=== PATIENT | male | born 1955 | race Caucasian/White ===

== ENCOUNTER 2021-08-15 20:24 | Observation (INO) | payer MEDICARE, SELFPAY ==
--- NOTE | ~2021-08-15 | CT_ITS ---
EXAMINATION: CT abdomen pelvis w con DATE: 08/15/2021 22:16 INDICATION: Left lower quadrant pain TECHNIQUE: Computed tomography (CT) of the abdomen and pelvis was performed with 100 cc Omnipaque 350 intravenous contrast. The dose-length product was 443.96 mGy-cm. Automated exposure control and iter ative reconstruction technique were employed. COMPARISON: No prior studies for comparison. FINDINGS: There are small pulmonary nodules in the lung bases, some of which are calcified. There is a pleural-based right middle lobe nodule measuring 6 mm, likely benign. No significant pleural or pe ricardial effusion. The liver, spleen, pancreas, adrenal glands and kidneys are unremarkable. Gallbladder is present. Non obstructive bowel gas pattern. There is a right inguinal hernia containing nonobstructed small bowel. Trace free fluid in the hernia sac. There is mild bladder wall thickening anteriorly. Consider cysti tis in the appropriate clinical setting. No acute osseous abnormality. IMPRESSION: 1. Right inguinal hernia containing nonobstructed small bowel. 2: Mild bladder wall thickening, suspicious for cystitis. 3: Small bilateral pulmonary nodules, largest in the right middle lobe measuring 6 mm, likely benign. Follow-up low dose CT chest in 6 months recommended. Reviewed, dictated and finalized at location A. [facility] IMPRESSION: 1. Right inguinal hernia containing nonobstructed small bowel. 2: Mild bladder wall thickening, suspicious for cystitis. 3: Small bilateral pulmonary nodules, largest in the right middle lobe measurin g 6 mm, likely benign. Follow-up low dose CT chest in 6 months recommended.
[2021-08-15 20:26] VITALS: BP 193/75; PULSE 83; RESP 19; TEMP 36.6; O2SAT 100
--- NOTE | 2021-08-15 21:02 | ED.ABDPAIN ---
HPI - Abdominal Pain General Chief Complaint: Abdominal Pain Stated Complaint: abd pain Time Seen by Provider: 08/15/21 20:38 Source: patient and family History of Present Illness HPI narrative: 66-year-old male presented the restaurant for evaluation of nausea and vomiting with left lower abdominal pain since Tuesday. Patient states prior to arrival he was going to urinate and he felt a pop in his right groin followed by a bulge at his right groin. On examination patient did have a right-sided inguinal hernia that was able to be reduced. Patient did feel improved with reduction. This was initially about the size of a golf ball. Patient did stand at bedside and had a recurrence of the hernia but was able to spontaneously reduce it when laying back down. Related Data Allergies Allergy/AdvReac Type Severity Reaction Status Date / Time lisinopril AdvReac Mild elevated Verified 08/16/21 00:04 potassium PMFSH Family History Family History (Updated 08/16/21 @ 00:30 by Zion Ngo RN) Mother Family history of malignant neoplasm of thyroid Father Dementia Cerebrovascular accident Sibling Hypothyroid Hypertension Sibling Hypertension Heart attack Sibling Alcoholism Social History Social History Smoking status: Never smoker Second hand tobacco smoke exposure: No Alcohol intake: never Alcohol use details: rare Substance use: never Substance use type: does not use Gender identity (if verbalized by the patient): Male Spiritual care concerns: No Exam Narrative: APPEARANCE: Well appearing, no pain, no distress, well-nourished. HEAD: normocephalic, atraumatic. NECK: Supple. No adenopathy, no masses. RESPIRATORY: Airway patent, respirations nonlabored. Clear to auscultation bilaterally, no rales, rhonchi, wheezing. CARDIOVASCULAR: Regular rate and rhythm without murmurs rubs or gallops. ABDOMINAL: Left lower quadrant pain. Patient did have a right inguinal hernia that was able to be reduced. MUSCULOSKELETAL: Moves all extremities. Strength/ROM intact, No edema, No calf tenderness. SKIN: Warm, dry. Normal Color Course Course Emergency Course: Coming back from CT patient did have a significant worsening of his right inguinal hernia with the deformity being approximately 8 cm. Patient states that he had been feeling fine but stood up from the bed to transfer to the CT gurney when he had a recurrence of the right inguinal hernia. Hernia was visualized on the CT scan. Upon returning to the room the patient initially did not tolerate reduction of the hernia. Patient was provided additional medications for pain control and ice pack was placed. Case was discussed with Dr. Kiser on-call for surgery and patient will be admitted. I did return to reevaluate the patient and was able to reduce the hernia successfully. Patient and were updated on the plan for bedrest and admission for surgical evaluation. Vital Signs Vital signs: Vital Signs Temperature 97.9 F 08/15/21 20:26 Pulse Rate 83 08/15/21 20:26 Respiratory Rate 19 08/15/21 20: Blood Pressure 193/75 H 08/15/21 20:26 Pulse Oximetry 100 08/15/21 20: Temperature 97.7 F 08/16/21 00:01 Pulse Rate 66 08/16/21 00:01 Respiratory Rate 18 08/16/21 00:01 Blood Pressure 128/58 L 08/16/21 00:01 Pulse Oximetry 97 08/16/21 00:01 MDM - Abdominal Pain Lab Data Attestation: I reviewed the patient's lab results. Result diagrams: 08/15/21 21:30 08/15/21 21:30 Labs: Lab Results 08/15/21 08/15/21 08/15/21 Range/Units 21:30 21:30 21:30 WBC 11.3 H (4.5-10.0) K/mm3 RBC 5.09 (4.6-6.20) M/mm3 Hgb 15.5 (14.0-18.0) g/dL Hct 46.5 (42.0-52.0) % MCV 91.4 (80-100) fl MCH 30.5 (26-34) pg MCHC 33.3 (32-36) g/dl RDW 12.0 (11.5-14.5) % Plt Count 257 (150-375) k/mm3 MPV 10.2 (7.4-10.4)
[2021-08-15 21:35] LABS: Basophils Absolute Auto 0.1 K/mm3 (0.0-0.1); Basophils Percent Auto 0.8 % (0.2-1.2); Eosinophils Absolute Auto 0.1 K/mm3 (0-0.3); Eosinophils Percent Auto 1.1 % (0-4.4); Hematocrit 46.5 % (42.0-52.0); Hemoglobin 15.5 g/dL (14.0-18.0); Immature Granulocyte Absolute 0.04 K/mm3 (0.00-0.031); Immature Granulocyte Percent A 0.4 % (0-0.5); Lymphocytes Absolute Auto 1.51 K/mm3 (0.9-3.2); Lymphocytes Percent Auto 13.4 % (18.3-44.2); Mean Corpuscular HGB Conc 33.3 g/dl (32-36); Mean Corpuscular Hemoglobin 30.5 pg (26-34); Mean Corpuscular Volume 91.4 fl (80-100); Mean Platelet Volume 10.2 fl (7.4-10.4); Monocytes Absolute Auto 1.1 K/mm3 (0.1-0.6); Monocytes Percent Auto 10.1 % (2.6-8.5); Neutrophils Absolute Auto 8.4 K/mm3 (1.3-6.7); Neutrophils Percent Auto 74.2 % (45.5-73.1); Platelet Count Result 257 k/mm3 (150-375); Red Blood Count 5.09 M/mm3 (4.6-6.20); White Blood Count 11.3 K/mm3 (4.5-10.0)
[2021-08-15 21:48] LABS: Alanine Aminotransferase 29 U/L (4-50); Albumin Level 4.8 g/dL (3.5-5.1); Alkaline Phosphatase 65 U/L (38-126); Anion Gap 7 mmol/L (8-16); Aspartate Amino Transferase 29 U/L (17-59); Bilirubin,Total 0.6 mg/dL (0.2-1.3); Blood Urea Nitrogen 15 mg/dL (9-20); Calcium 9.6 mg/dL (8.4-10.2); Carbon Dioxide 28 mmol/L (22-30); Chloride 101 mmol/L (98-107); Estimated CRCL calculation 77 ml/min; Estimated Glomerular Filt Rate > 60; Glucose 159 mg/dL (65-110); Potassium 3.7 mmol/L (3.4-5.0); Sodium 136 mmol/L (137-145)
[2021-08-15] MEDS: HYDROmorphone HCL INJ (*CRX) 1 MG/ML SYR IV PUSH (22:31)
[2021-08-15] MEDS: ONDANSETRON INJ 4 MG/2 ML VIAL IV PUSH (22:31)
[2021-08-15] MEDS: SODIUM CHLORIDE 0.9% IV 1,000 ML 999 ML IV CONT (22:41)
[2021-08-15 22:42] VITALS: BP 185/91; PULSE 63; RESP 18; O2SAT 99
--- NOTE | 2021-08-15 23:08 | PC.NURSE ---
Assuming care of pt.
[2021-08-15 23:36] LABS: SARS-CoV-2 RNA PCR Negative
[2021-08-16] VITALS: BMI 27.1
--- NOTE | 2021-08-16 | ADMGEN ---
This patient, Fly Kiser JrYas, was admitted to Medical Room 243-01. Patient/family oriented to hospital policies and general routines including ID bracelet, bed and alarms, visiting hours, pain management, procedures, bathroom and other care routines, personal items, smoking policy, room service/diet, and visiting hours. Information on how to activate the Rapid Response Team has been discussed. Patient/Family are encouraged to report perceived risks to care and to ask questions if they do not understand what they are told or what they should do.
[2021-08-16 00:01] VITALS: BP 128/58; PULSE 66; RESP 18; TEMP 36.5; O2SAT 97
[2021-08-16] MEDS: SODIUM CHLORIDE 0.9% IV 1,000 ML 125 ML IV CONT ×3 (00:03→16:13)
[2021-08-16 02:10] LABS: Add Urine Microscopic? NO; Appearance Urine Clear (Clear); Bilirubin Urine Negative (Negative); Blood Urine Negative (Negative); Color Urine Yellow (Yellow); Glucose Urine UA Negative (Negative); Ketones Urine Negative (Negative); Leukocyte Esterase Ur Negative LEU/UL (Negative); Mucus Urine Rare /lpf; Nitrate Urine Negative (Negative); Protein Urine Negative (Negative); RBC Urine 0-2 /hpf (0-2); Urobilinogen Urine Negative mg/dL (<2.0); WBC Urine 0-3 /hpf
[2021-08-16 03:28] VITALS: BP 114/65; PULSE 57; RESP 16; TEMP 36.4; O2SAT 99
[2021-08-16 05:49] LABS: Basophils Absolute Auto 0.1 K/mm3 (0.0-0.1); Basophils Percent Auto 0.6 % (0.2-1.2); Eosinophils Absolute Auto 0.1 K/mm3 (0-0.3); Eosinophils Percent Auto 0.5 % (0-4.4); Hematocrit 43.1 % (42.0-52.0); Immature Granulocyte Absolute 0.06 K/mm3 (0.00-0.031); Immature Granulocyte Percent A 0.5 % (0-0.5); Lymphocytes Absolute Auto 1.65 K/mm3 (0.9-3.2); Lymphocytes Percent Auto 12.8 % (18.3-44.2); Mean Corpuscular HGB Conc 32.5 g/dl (32-36); Mean Corpuscular Hemoglobin 30.7 pg (26-34); Mean Corpuscular Volume 94.5 fl (80-100); Monocytes Percent Auto 7.9 % (2.6-8.5); Neutrophils Percent Auto 77.7 % (45.5-73.1); Platelet Count Result 234 k/mm3 (150-375); Red Blood Count 4.56 M/mm3 (4.6-6.20); White Blood Count 12.9 K/mm3 (4.5-10.0)
[2021-08-16 08:00] VITALS: O2SAT 96
--- NOTE | 2021-08-16 09:24 | PM.IMHP ---
H&P: HPI History of Present Illness Date/Time: 08/16/21 09:24 This is a 66-year-old male presented the restaurant for evaluation of nausea and vomiting with left lower abdominal pain since Tuesday. Patient states prior to arrival he was going to urinate and he felt a pop in his right groin followed by a bulge at his right groin. On examination patient did have a right-sided inguinal hernia that was able to be reduced. Patient did feel improved with reduction. This was initially about the size of a golf ball. Patient did stand at bedside and had a recurrence of the hernia but was not able to spontaneously reduce it when laying back down. So after dthe CT in the ED Dr. Arnold was again able to reduce it but not wihthout significant pain by the patient. Patient has been fairly complex from trouble when stain in bed and not straining over the interim. Chief Complaint: Painful bulge in the right groin Review of Systems Review of Systems: All systems reviewed & are unremarkable except as noted in HPI and below (HPI) Constitutional: Constitutional: Reports as per HPI, Denies chills and Denies fever(s) Eyes: Eyes: Reports no additional eye complaints ENT: Reports Normal hearing present and Denies dizziness Cardiovascular: Cardiovascular: Reports no additional cardiovascular complaints, Denies chest pain and Denies irregular heart rhythm Comments: History of hypertension controlled on medications History of hypercholesterolemia medication Respiratory: Respiratory: Reports no additional respiratory complaints Gastrointestinal: Gastrointestinal: Reports no additional gastrointestinal complaints, Denies abdominal pain, Denies bloating and Reports GI cramping ( occasionally, in left lower quadrant) Comments: The patient has completed two Cologuard tests 3 years apart with the most recent being last year. These but only both were negative. He has never had a colonoscopy. Genitourinary: Genitourinary: Denies hematuria, Denies urinary frequency and Denies urinary hesitancy Musculoskeletal: Musculoskeletal: Denies back pain Integumentary/Breasts: Skin/Breast: Reports system reviewed and no additional complaints, except as docu Neurologic: Reports Normal hearing present, Denies Abnormal speech present, Denies confusion and Denies dizziness Psychiatric: Psychiatric: Reports no additional psychiatric complaints and Denies confusion Endocrine: Endocrine: Reports no additional endocrine complaints Comments: History of hypothyroid or thyroidism on medication. He believes his last test for his thyroid levels were approximately 3 months ago. Hematologic/Lymphatic: Hematologic/Lymphatic: Denies easy bleeding and Denies easy bruising Allergic/Immunologic: Allergic/Immunologic: Reports no additional allergic/immunologic complaints PMFSH Family History Family History (Updated 08/16/21 @ 00:30 by Zion Ngo RN) Mother Family history of malignant neoplasm of thyroid Father Dementia Cerebrovascular accident Sibling Hypothyroid Hypertension Sibling Hypertension Heart attack Sibling Alcoholism Social History Social History Smoking status: Never smoker Second hand tobacco smoke exposure: No Alcohol intake: never Alcohol use details: rare Substance use: never Substance use type: does not use Gender identity (if verbalized by the patient): Male Spiritual care concerns: No Meds Home Medications and Allergies Home Medications Medication Instructions Recorded Confirmed Type levothyroxine 100 mcg tablet 100 mcg PO DAILY #30 tablet 02/25/21 08/16/21 Rx amlodipine 2.5 mg tablet 2.5 mg PO DAILY #30 tablet 04/20/21 08/16/21 Rx atorvastatin 20 mg tablet 20 mg PO QHS #90 tablet 05/29/21 08/16/21 Rx hydrochlorothiazide 25 mg tablet 25 mg PO DAILY #30 tablet 06/12/21 08/16/21 Rx Allergies Allergy/AdvReac Type Severity Reaction Status Date / Time
[2021-08-16 14:00] VITALS: BP 130/64; PULSE 66; RESP 18; TEMP 36.8; O2SAT 98
[2021-08-16 20:57] VITALS: BP 143/70; PULSE 61; RESP 18; TEMP 36.9; O2SAT 98
[2021-08-16] MEDS: LEVOTHYROXINE SODIUM 100 MCG TABLET PO (21:34)
[2021-08-17] VITALS (13 sets, daily range): BP systolic 120–164; BP diastolic 63–74; PULSE 60–92; RESP 14–22; TEMP 35.6–36.4; O2SAT 96–100
[2021-08-17] MEDS: SODIUM CHLORIDE 0.9% IV 1,000 ML 100 ML IV CONT ×2 (01:22→12:12)
[2021-08-17] MEDS: CHLORHEXIDINE GLUCONATE 4% SOL 120 ML BTL 1 APPLIC TOPICAL (04:04)
[2021-08-17] MEDS: amLODIPine BESYLATE 2.5 MG TABLET PO (09:00)
--- NOTE | 2021-08-17 11:38 | PCCCNOTE ---
On 08/17/21, the student, [Darlene Hoffman ], provided care and [facility]. I have reviewed the student's documentation and agree with the findings.
[2021-08-17] MEDS: KETOROLAC 15 MG/ML VIAL (*BKC) IV PUSH (13:31)
[2021-08-17] MEDS: LACTATED RINGERS 1,000 ML 30 ML IV CONT (13:31)
[2021-08-17] MEDS: ACETAMINOPHEN 500 MG TABLET 1000 MG PO (13:31)
--- NOTE | 2021-08-17 13:31 | WPDANESEPPF ---
Anes - Initial Pre Proc Eval Procedure: Operation Date: 08/17/21 15:00 Proposed Procedures p open Right Inguinal Hernia Repair With Mesh - Jacinto Kiser MD Date/Time: 08/17/21 13:31 Surgeon: Jacinto Kiser MD Pre Op Diagnosis: Right Inguinal Hernia Patient Data Age: 66 Gender: M Height: 1.75 m Weight: 83.3 kg Last Vital Signs Temp 36.4 C 08/17/21 04:56 Pulse 62 08/17/21 04:56 Resp 16 08/17/21 04:56 BP 148/66 H 08/17/21 04:56 Pulse Ox 96 08/17/21 10:27 Allergies Allergy/AdvReac Type Severity Reaction Status Date / Time lisinopril AdvReac Mild elevated Verified 08/17/21 13:23 potassium Home Medications Medication Instructions Recorded Confirmed Type levothyroxine 100 mcg tablet 100 mcg PO DAILY #30 tablet 02/25/21 08/16/21 Rx amlodipine 2.5 mg tablet 2.5 mg PO DAILY #30 tablet 04/20/21 08/16/21 Rx atorvastatin 20 mg tablet 20 mg PO QHS #90 tablet 05/29/21 08/16/21 Rx hydrochlorothiazide 25 mg tablet 25 mg PO DAILY #30 tablet 06/12/21 08/16/21 Rx Patient hx anesthesia problems: none Family hx anesthesia problems: none Results Review: All pre-operative results and documents have been reviewed as part of the pre-operative evaluation. [facility] Family History Family History Mother Family history of malignant neoplasm of thyroid Father Dementia Cerebrovascular accident Sibling Hypothyroid Hypertension Sibling Hypertension Heart attack Sibling Alcoholism Social History Social History Smoking status: Never smoker Second hand tobacco smoke exposure: No Alcohol intake: never Alcohol use details: rare Substance use: never Substance use type: does not use Gender identity (if verbalized by the patient): Male Spiritual care concerns: No Anes - Eval Final PreProcedure Day of Procedure 08/17/21 13:31 Patient weight: overweight Heart: regular rate and rhythm Lungs: clear to auscultation Airway: Mallampati scale class II and special considerations poor opening Neurological: alert and oriented Last oral intake: >/= 8 hours ASA classification: III Emergent: no Anesthetic plan: proceed Anesthesia type and monitoring: general ETT and standard monitoring Results Review: All pre-operative results and documents have been reviewed as part of the pre-operative evaluation. Informed Consent: The patient's anesthetic plan and its attendant risks and benefits were discussed with the patient/family/POA. Questions were solicited and answers provided to the satisfaction of the patient/family/POA.
[2021-08-17] MEDS: ceFAZolin 2 GM/D5W 50 ML 2 GM/50 ML BAG IVPB (13:50)
[2021-08-17] MEDS: BUPIVACAINE/EPINEPHRINE 0.5% 30 ML VIAL INFILTRATE (14:28)
--- NOTE | 2021-08-17 16:31 | W.PM.PROC2 ---
Procedure Note - Detailed Date of Procedure 08/17/21 Pre-op Diagnosis Right Inguinal Hernia (recently incarcerated) Post-op Diagnosis same Procedure Performed Open inguinal hernia repair with mesh Surgeon Jacinto Kiser MD Environmental Construction Engineer Jaycee [place], [place] [facility] assist Anesthesia general and local (0.5% Marcaine with 1% xylocaine plain mixed) Indications Patient presented the ER yesterday with an incarcerated right inguinal hernia. CT scan showed that he had contained what appeared to be unobstructed bowel. The ER physician was able to reduce it. However it came right back out when the patient stood up. Therefore he was kept flat and after some ice in Trendelenburg position I was able to be reduced again. We kept the patient bed rest and I talked to him about the risks benefits possible complications of a open inguinal hernia repair. I explained the use of mesh and its possible complications. Because he was having significant pain with the incarceration he wanted to proceed as soon as possible with repair. Findings Patient had a very large indirect inguinal hernia sac. At the time of surgery did not contain any intra-abdominal contents. Description of Procedure The patient was placed in the supine position on the operating room table. After induction of adequate general endotracheal by [facility] Anesthesia staff, we carefully prepped the entire abdomen and scrotum with chlorhexidine. One sterile towel was placed underneath the scrotum. Four towels were placed around the right lower quadrant. Following this, a time-out was performed with the surgical team and the patient's surgical procedure and site was confirmed. We then carefully outlined a curvilinear incision in the right groin area and a curvilinear incision was made after introducing a mixture of local anesthetic, using 0.5% Marcaine with epinephrine and 1% Xylocaine plain as both an ilioinguinal nerve block and at the incision site with a 25 gauge needle. Following this, I carefully made the incision, and carried it down through the subcutaneous tissue. Talia's fascia was incised and then we identified the external oblique aponeurosis and the external ring. Following this, the same mixture of local anesthetic was infiltrated underneath the external oblique aponeurosis and this was split in the direction of it's fibers with a #15 blade initially and then using metzenbaum scissors. I then opened the external oblique through the external ring and incised this somewhat posteriorly and superiorly exposing the ilioinguinal nerve. This nerve was carefully preserved laterally and then I carefully and meticulously dissected out the cord structures at the level of the pubic tubercle. I then surrounded these structures at the level of pubic tubercle and placed a Karely drain around them. I then carefully dissected the hernia sac up and off of the cord tissues, and brought it up and out of the incision. We carefully dissected the layers and cremasteric tissues off the hernia sac and then eventually opened the hernia sac. Holding this up with 4 hemostats, I carefully dissected it off the cord structures, being careful to avoid injury to the Pampiniform plexus veins, the spermatic artery and the vas. Patient had a very long thick indirect hernia sac. This extended down to the top of the right testicle. We carefully dissected the cord structures away from the hernia sac back to its neck at the internal ring. Once the hernia sac was carefully dissected back to the level of the internal ring, a suture ligation pursestring suture of 2-0 silk was used to close the neck of the hernia sac. Because of its length and thickness I actually did dissect open the hernia sac dissected it anteriorly clear back to the internal ring put a hemostat on that and then circumferentially amputated at the level of the internal ring and passed off the field in 2 pieces labeled as indirect inguinal hernia sac.
--- NOTE | 2021-08-17 19:26 | PM.DS ---
DS: Admitting Diagnosis Discharge Date 08/17/2021 Admitting Diagnosis incarcerated [facility] DS: Discharge Diagnosis Discharge Diagnosis (1) Inguinal hernia: Qualifiers: Laterality: unilateral Obstruction and gangrene presence: without obstruction or gangrene Recurrence: recurrent Qualified Code(s): K40.91 - Unilateral inguinal hernia, without obstruction or gangrene, recurrent Code(s): K40.90 - Unilateral inguinal hernia, without obstruction or gangrene, not specified as recurrent Status: Acute Assessment and Plan: This was the main reason for the patient's admission. Came in with the small bowel incarcerated in the right inguinal hernia. This was able to be to reduced in the emergency room. Then became incarcerated again after getting on CT table. Therefore, we kept him hospital. We kept him on bed rest then took him to the operating room on 08/17/2021. A large indirect inguinal hernia sac was identified and there was definite weakness also in direct space. This was repaired by a modified Priti type repair with a piece of pre shaped keyhole mesh. Patient tolerated the procedure well. (2) Hypothyroidism, unspecified: Code(s): E03.9 - Hypothyroidism, unspecified Status: Acute Assessment and Plan: NOt addressed during this stay. He will resume usual home meds & F/U wiht his PCP. (3) HTN (hypertension): Onset Date: Unknown Qualifiers: Hypertension type: primary hypertension Qualified Code(s): I10 - Essential (primary) hypertension Code(s): I10 - Essential (primary) hypertension Status: Chronic Assessment and Plan: Resuming usual home meds DS: Summary Hospital Course Reason for hospitalization: Incarcerated right inguinal hernia Hospital Course: His hernia was the main reason for the patient's admission. He came in with the small bowel incarcerated in the right inguinal hernia. This was able to be to reduced in the emergency room. Then became incarcerated again after getting on CT table. Therefore, we kept him hospital. We kept him on bed rest then took him to the operating room on 08/17/2021. A large indirect inguinal hernia sac was identified and there was definite weakness also in direct space. This was repaired by a modified Priti type repair with a piece of pre shaped keyhole mesh. Patient tolerated the procedure well. Status at Discharge Cognitive/behavioral status at discharge: normal Functional status at discharge: independent ambulation Overall status at discharge: patient is not back to baseline Time Spent with Patient Time attestation: Total time spent providing and/or coordinating discharge services: Time spent: Less than 30 minutes Exam Const: General: cooperative, comfortable, alert and awake Orientation/consciousness: patient oriented x3 HENMT: Head: normal to inspection Mouth: Yes moist mucous membranes Eyes: Sclera: sclerae normal Pupils: Equal, round and reactive pupils present Neck: Neck: normal visual inspection and no JVD Chest: Chest palpation & inspection: normal inspection of the chest Resp: Effort & Inspection: normal respiratory effort Auscultation: clear to auscultation bilaterally Cardio: Jugular venous distension: no JVD Rate: regular rate GI: Inspection: incision (Clean and dry with surgical glue in place.) and no visible herniation Neuro: General: patient oriented x3 Cranial nerves: Yes Equal, round and reactive pupils present DS: Data Data Completed and Pending Pending studies at discharge: Pending at discharge 08/17/21 15:41 Surgical [PTH] Routine Discharge Plan Discharge Attending physician on discharge: Jacinto Kiser Consulting providers: Casey Mann Discharging Clinician: Jacinto Kiser Anticipated Discharge Date/Time: 08/17/21 20:30 Patient Disposition: Home, Self-Care Activity: may shower and other - see discharge inst
[2021-08-17] MEDS: LEVOTHYROXINE SODIUM 100 MCG TABLET PO (20:35)
[2021-08-17] MEDS: HYDROcodone/acetaminophen (*CRX) 7.5-325 MG TABLET 1 TAB PO (20:44)
[2021-08-17] MEDS: SENNA/DOCUSATE SODIUM TABLET 2 TAB PO (21:56)
[2021-08-18 03:30] VITALS: BP 132/71; PULSE 64; RESP 20; TEMP 36.6; O2SAT 98
[2021-08-18] MEDS: HYDROcodone/acetaminophen (*CRX) 7.5-325 MG TABLET 1 TAB PO (05:38)
[2021-08-18 05:52] LABS: Hematocrit 38.9 % (42.0-52.0); Hemoglobin 13.2 g/dL (14.0-18.0); Mean Corpuscular HGB Conc 33.9 g/dl (32-36); Mean Corpuscular Hemoglobin 31.5 pg (26-34); Mean Corpuscular Volume 92.8 fl (80-100); Mean Platelet Volume 11.2 fl (7.4-10.4); Platelet Count Result 208 k/mm3 (150-375); Red Blood Count 4.19 M/mm3 (4.6-6.20)
[2021-08-18 06:02] LABS: Anion Gap 6 mmol/L (8-16); Blood Urea Nitrogen 12 mg/dL (9-20); Calcium 8.5 mg/dL (8.4-10.2); Carbon Dioxide 24 mmol/L (22-30); Chloride 105 mmol/L (98-107); Estimated CRCL calculation 77 ml/min; Estimated Glomerular Filt Rate > 60; Glucose 138 mg/dL (65-110); Potassium 3.9 mmol/L (3.4-5.0); Sodium 135 mmol/L (137-145)
[2021-08-18 07:30] VITALS: BP 154/64; PULSE 77; RESP 20; TEMP 35.6; O2SAT 100
--- NOTE | 2021-08-18 08:13 | PM.PNGS ---
Progress Note: A&P Assessment and Plan (1) Reducible right inguinal hernia: Onset Date: ~08/2021 Code(s): K40.90 - Unilateral inguinal hernia, without obstruction or gangrene, not specified as recurrent Status: Acute Assessment and Plan: POD #1 Doing well. Incision wiht some swelling but otherwise doing well. (2) HTN (hypertension): Onset Date: Unknown Qualifiers: Hypertension type: primary hypertension Qualified Code(s): I10 - Essential (primary) hypertension Code(s): I10 - Essential (primary) hypertension Status: Chronic Assessment and Plan: To resume home meds. Subjective Subjective Date/Time Seen: 08/18/21 08:13 Post Op day: 1 (Status post open right inguinal hernia repair with mesh) Patient reports: feels better, tolerating liquids well and afebrile Interval history: patient states he was still moving slow is having some difficulty voiding last evening so did not go home. This morning feeling okay he has been up he is about ready to eat breakfast. He has had no trouble voiding overnight. Review of Systems Review of Systems: All systems reviewed & are unremarkable except as noted in HPI and below Constitutional: Constitutional: Denies chills and Denies fever(s) Cardiovascular: Cardiovascular: Denies chest pain and Denies dyspnea Respiratory: Respiratory: Reports no additional respiratory complaints and Denies dyspnea Gastrointestinal: Gastrointestinal: Reports as per HPI and Denies bloating Musculoskeletal: Musculoskeletal: Reports no additional musculoskeletal complaints Neurologic: Denies memory loss Psychiatric: Psychiatric: Denies anxiety and Denies memory loss Exam Const: General: cooperative, comfortable, alert and awake Orientation/consciousness: patient oriented x3 HENMT: Head: normal to inspection Mouth: Yes moist mucous membranes Eyes: Sclera: sclerae normal Pupils: Equal, round and reactive pupils present Neck: Neck: normal visual inspection and no JVD Chest: Chest palpation & inspection: normal inspection of the chest Resp: Effort & Inspection: normal respiratory effort Auscultation: clear to auscultation bilaterally Cardio: Jugular venous distension: no JVD Rate: regular rate Neuro: General: patient oriented x3 Cranial nerves: Yes Equal, round and reactive pupils present Objective Data Vital Signs Vital Signs: Vital Signs - 24 hr 08/17/21 10:27 08/17/21 13:40 08/17/21 16:27 Temperature 35.6 C L 36.4 C L Pulse Rate 77 92 Respiratory Rate 16 18 Blood Pressure 164/66 H 139/63 Pulse Oximetry 96 100 100 08/17/21 16:40 08/17/21 16:55 08/17/21 17:10 Temperature Pulse Rate 62 68 78 Respiratory Rate 14 14 14 Blood Pressure 128/64 130/65 143/68 H Pulse Oximetry 97 97 98 08/17/21 17:25 08/17/21 17:45 08/17/21 18:00 Temperature 36.0 C L 36.1 C L Pulse Rate 65 73 74 Respiratory Rate 20 16 16 Blood Pressure 138/70 141/74 H 148/72 H Pulse Oximetry 98 99 100 08/17/21 18:30 08/17/21 19:30 08/17/21 23:30 Temperature 36.1 C L 36.4 C L 36.4 C L Pulse Rate 72 73 60 Respiratory Rate 16 22 H 20 Blood Pressure 153/68 H 136/67 120/64 Pulse Oximetry 100 99 98 08/18/21 03:30 Temperature 36.6 C Pulse Rate 64 Respiratory Rate 20 Blood Pressure 132/71 Pulse Oximetry 98 Intake/Output Intake/Output: Intake & Output 08/15/21 08/16/21 08/17/21 08/18/21 23:59 23:59 23:59 23:59 Intake Total 1000 3080 2350 290 Output Total 2675 1525 Balance 1000 405 825 290 Meds/Results Medications: Active Medications Generic Name Dose Route Start Last Admin Trade Name Freq PRN Reason Stop Dose Admin Acetaminophen 1,000 mg 08/17/21 17:30 Acetaminophen 500 Mg Tablet PO Q6H PRN Mild Pain (1-3) or Fever Hydrocodone Bitart/Acetaminophen 1 tab 08/17/21 17:30 Hydrocodone/Acetaminophen (*Crx) 5-325 Mg Tablet PO Q6H PRN Pain Rated 4-6 Hydrocodone Bitart/Acetaminophen 1
--- NOTE | 2021-08-18 08:46 | WPDANESPN ---
Anes - Prog Note Post-Op Date/Time: 08/18/21 08:46 Cardiovascular status: normal Respiratory status: normal Airway patency: baseline Mental status: baseline Post-Op hydration status: normal Vital Signs: Last Vital Signs Temp 97.8 F 08/18/21 03:30 Pulse 64 08/18/21 03:30 Resp 20 08/18/21 03:30 BP 132/71 08/18/21 03:30 Pulse Ox 98 08/18/21 03:30 Pain Score (VAS): 07/20 I/O: Intake & Output 08/17/21 08/18/21 08/18/21 23:59 07:59 15:59 Intake Total 0 290 Output Total 1525 Balance -1525 290 Laboratory Tests 08/18/21 05:18 08/18/21 05:18 08/18/21 08/18/21 05:18 05:18 WBC 20.0 H RBC 4.19 L Hgb 13.2 L Hct 38.9 L MCV 92.8 MCH 31.5 MCHC 33.9 RDW 12.0 Plt Count 208 MPV 11.2 H Sodium 135 L Potassium 3.9 Chloride 105 Carbon Dioxide 24 Anion Gap 6 L BUN 12 Creatinine 0.80 Estim Creat Clear Calc 77 Estimated GFR > 60 Glucose 138 H Calcium 8.5 Post-procedural complaints: none Patient Feedback: Patient satisfied with anesthetic care.
[2021-08-18] MEDS: amLODIPine BESYLATE 2.5 MG TABLET PO (09:09)
== END 2021-08-18 10:25 | disposition home or self-care (01) ==
LOC: ANHED 22:56 → ANH2MED 23:20
PROVIDERS: Admitting Provider Surgery; Emergency Provider Emergency Medicine; PCP Family Medicine; Visit Provider Surgery
PROC: (CPT 49507; principal; 2021-08-17 15:00)
DX: K40.30 Unilateral inguinal hernia, with obstruction, without gangrene, not specified as recurrent (principal); I10 Essential (primary) hypertension; E03.9 Hypothyroidism, unspecified; E78.5 Hyperlipidemia, unspecified; Z20.822 Contact with and (suspected) exposure to COVID-19
CPT/HCPCS: 49507; 36415; 74177; 80048; 80053; 81003; 83605; 85025; 85027; 88302; 96360; 96361; 96374; 96375; 99285; A9270; C1781; C9803; G0378; J0690; J1170; J1885; J2250; J2405; J2704; J3010; J7030; J7120; Q9967; U0003; U0005

== ENCOUNTER → 2021-09-24 15:43 | Outpatient (CLI) | payer MEDICARE, SELFPAY ==
--- NOTE | ~2021-09-24 | XR_ITS ---
EXAMINATION: XR lumbar spine 2-3V DATE: 09/24/2021 16:19 INDICATION: Low back pain. TECHNIQUE: 3 views of lumbar spine were obtained. COMPARISON: CT abdomen and pelvis 08/15/2021 FINDINGS: Bone alignment is normal. Vertebral body heights are normal. There is mildly decreased disc height at L4-L5. There are endplate osteophytes at multiple levels. There is multilevel facet joint osteoarthritis, moderate in lower lumbar spine. IMPRESSION: 1. Mild lumbar spondylosis. Reviewed, dictated and finalized at location A. IMPRESSION: 1. Mild lumbar spondylosis.
--- NOTE | ~2021-09-24 | XR_ITS ---
XR hip BI 2V w AP pelvis DATE: 09/24/2021 16:19 INDICATION: Low back pain. Bilateral hip pain. TECHNIQUE: AP pelvis. AP and lateral views of each hip. COMPARISON: None FINDINGS: Moderate degenerative disc disease at L4-5. Pubic symphysis and sacroiliac joints are intact. Mild bilateral hip osteoarthritis. No pelvic fracture or bone destruction. No fracture, dislocation, avascular necrosis or bone destruct ion of either hip is detected. IMPRESSION: Mild bilateral hip osteoarthritis Reviewed, dictated and finalized at location A.
== END ==
PROVIDERS: Visit Provider Physician Assistant
DX: M16.0 Bilateral primary osteoarthritis of hip (principal); M47.896 Other spondylosis, lumbar region
CPT/HCPCS: 72100; 73521

== ENCOUNTER → 2022-03-05 11:42 | Outpatient (CLI) | payer MEDICARE, SELFPAY ==
--- NOTE | ~2022-03-05 | CT_ITS ---
EXAMINATION: CT diagnostic chest wo con DATE: 03/05/2022 11:56 INDICATION: pulmonary nodule, abnormal ct scan TECHNIQUE: Computed tomography (CT) of the chest was performed without intravenous contrast. Addition al 3D reconstructions utilizing coronal maximum intensity projection (MIP) were performed. Automated exposure control and iterative reconstruction technique were employed. The dose-length product was 99 .47 mGy-cm. COMPARISON: CT abdomen and pelvis dated 08/15/2021 FINDINGS: Fine reticulonodular pattern at the dependent periphery of the bilateral lower lobes and in places wi th tree-in-bud pattern. These nodules all measure <4 mm. There are couple slightly larger pleural-bas ed nodules in the right middle lobe measuring 1 mm and 6 x 3 mm. There are a couple small calcified n odules in the left lower and right upper lobes consistent with old granulomatous disease. The finding s in the bilateral lower lung zones appear unchanged when compared with CT of the abdomen and pelvis dated 08/15/2021. No pulmonary edema or pleural effusion. Heart size is normal. No pericardial effusion . Small amount of atherosclerotic and/or artery calcification. Thoracic aorta is normal in caliber. N o pathologically enlarged thoracic lymphadenopathy. Mild thoracic spondylosis. IMPRESSION: 1. No significant interval change since 08/15/2021 in numerous small likely infectious/inflammatory pul monary nodules with peripheral and lower lung predominance and potentially superimposed over mild chr onic interstitial lung disease. Reviewed, dictated and finalized at location A. IMPRESSION: 1. No significant interval change since 08/15/2021 in numerous small likely infec tious/inflammatory pulmonary nodules with peripheral and lower lung predominanc e and potentially superimposed over mild chronic interstitial lung disease.
== END ==
PROVIDERS: PCP Family Medicine; Visit Provider Physician Assistant
DX: R91.8 Other nonspecific abnormal finding of lung field (principal)
CPT/HCPCS: 71250

== ENCOUNTER 2022-04-07 08:26 | Outpatient (CLI) | payer MEDICARE, SELFPAY ==
--- NOTE | 2022-04-07 13:31 | WPDSIXMINUTE ---
Six Minute Walk Procedure Procedure Performed Pulmonary Stress Test (6 min walk) Six Minute Walk Six Minute Walk: This is a 6 minute walk test. The test was performed and interpreted in accordance with the 2014 ERS/ATS task force guidelines. Findings: The patient's resting room air oxygen saturation measured by pulse oximetry was 98% and heart rate was 69 bpm. Patient ambulated for 335 meters and oxygen saturation remained 96 to 99%. Heart rate at the end of the study was 85 bpm. The patient did not qualify for supplemental oxygen at rest or with ambulation. There are no prior studies for comparison.
--- NOTE | 2022-04-07 13:33 | WPDPFTINT ---
PFT Procedure Performed PFT Procedure Performed Spirometry with Pre/Post Bronchodilator Plethysmography (Lung Vol) Diffusing Cap (DLCO) Flow Vol Loop PFT Interpretation This is a pulmonary function test with pre and post-bronchodilator spirometry, plethysmography and diffusing capacity. The test was performed and results interpreted in accordance with the 2019 and 2005 ATS/ERS Task Force guidelines respectively using the Global Lung Function Initiative-2012 reference equations. Patient demonstrated good effort and cooperation. Reproducibility criteria were met. The quality of the pre bronchodilator spirometry maneuver was Grade A and post bronchodilator spirometry maneuver was Grade A. Findings: Spirometry: The contour the inspiratory and expiratory flow tracing are normal. The pre bronchodilator FVC is 3.76 L, 91% predicted. The pre bronchodilator FEV1 is 3.02 L, 96% predicted. The pre bronchodilator FEV1: FVC ratio is 80%. The post bronchodilator FVC is 3.98 L, representing a 6% increase. The post bronchodilator FEV1 is 3.20 L, representing a 6% increase. The post bronchodilator FEV1: FVC ratio was 80%. Plethysmography: The total lung capacity is 5.97 L, 88% predicted. Functional residual capacity is 3.55 L, 99% predicted. The residual volume is 2.21 L, 93% predicted. Diffusing capacity: The diffusing capacity unadjusted for hemoglobin and carboxyhemoglobin is 25.9, 100% predicted. The diffusing capacity adjusted for alveolar volume is 4.23, 105% predicted. Impression: The spirometry is normal without evidence of an obstructive abnormality. There is no significant improvement after inhaling a single dose of albuterol. The lung volumes are normal. The diffusing capacity is normal. There are no prior studies for comparison
== END 2022-04-07 08:27 | disposition home or self-care (01) ==
PROVIDERS: PCP Family Medicine; Visit Provider Internal Medicine Pulmonary Disease
DX: J84.9 Interstitial pulmonary disease, unspecified (principal)
CPT/HCPCS: 94060; 94618; 94726; 94729

== ENCOUNTER 2022-12-02 08:24 | Outpatient (CLI) | payer MEDICARE, SELFPAY ==
--- NOTE | 2022-12-02 15:50 | WPDPFTINT ---
PFT Procedure Performed PFT Procedure Performed Spirometry with Pre/Post Bronchodilator Plethysmography (Lung Vol) Diffusing Cap (DLCO) Flow Vol Loop PFT Interpretation Lung volumes were measured with the body plethysmography method. Lung volumes are unremarkable. Spirometry showed normal expiratory flow rates and a normal FEV1 to FVC ratio 75%. Following administration of a bronchodilator there was no significant increase in expiratory flow rates. Lung diffusion capacity is within the normal range at 105 % predicted. The flow-volume loop is unremarkable. In comparison to previous study done in March of 2022, spirometry, lung volumes and lung diffusion capacity have been essentially unchanged. Impression: Spirometry, lung volumes, and lung diffusion capacity all within the normal range.
== END 2022-12-02 08:25 | disposition home or self-care (01) ==
PROVIDERS: PCP Family Medicine; Visit Provider Internal Medicine Pulmonary Disease
DX: J84.9 Interstitial pulmonary disease, unspecified (principal)
CPT/HCPCS: 94060; 94726; 94729

== ENCOUNTER 2022-12-02 08:28 | Outpatient (CLI) | payer MEDICARE, SELFPAY ==
--- NOTE | ~2022-12-02 | CT_ITS ---
EXAMINATION:CT chest high resolution [facility] DATE: 12/02/2022 09:24 INDICATION: Interstitial lung disease. TECHNIQUE: Computed tomography (CT) of the chest was performed without intravenous contrast. Automate d exposure control and iterative reconstruction technique were employed. The dose-length product (DLP ) was 228.79 mGy-cm. COMPARISON: Chest CT 03/05/2022 FINDINGS: There is mild scarring at the lung apices. There is peripheral septal thickening in the ced gs with a lower lung predominance. There is mild bronchiectasis in right middle lobe and lingula. Tarik cified pulmonary nodules are consistent with old granulomatous disease. There are a few nodules in th e lungs measuring up to 4 mm at left major fissure, likely benign. There is a stable pleural-based 5 mm nodule in right middle lobe, likely benign. There is no pleural effusion. The heart size is normal . There are coronary artery calcifications. No pericardial effusion. There is mild thoracic spondylos is. IMPRESSION: 1. Stable mild chronic interstitial lung disease in a pattern of usual interstitial pneumonia (UIP). Reviewed, dictated and finalized at location E. IMPRESSION: 1. Stable mild chronic interstitial lung disease in a pattern of usual intersti tial pneumonia (UIP).
== END 2022-12-02 08:29 | disposition home or self-care (01) ==
PROVIDERS: PCP Family Medicine; Visit Provider Internal Medicine Pulmonary Disease
DX: J84.9 Interstitial pulmonary disease, unspecified (principal)
CPT/HCPCS: 71250; 94060; 94726; 94729

== ENCOUNTER 2023-05-04 14:49 | Outpatient (CLI) | payer MEDICARE, SELFPAY ==
--- NOTE | 2023-05-05 09:11 | WPDPFTINT ---
PFT Procedure Performed PFT Procedure Performed Spirometry with Pre/Post Bronchodilator Plethysmography (Lung Vol) Diffusing Cap (DLCO) Flow Vol Loop PFT Interpretation Lung volumes were measured with the body plethysmography method. Lung volumes are unremarkable. Spirometry showed normal expiratory flow rates and a normal FEV1 to FVC ratio 74%. Following administration of a bronchodilator there was no significant increase in expiratory flow rates. Lung diffusion capacity is within the normal range at 84% predicted. The flow volume loop is unremarkable. In comparison to previous study in March of 2022, spirometry, lung volume, and lung diffusion capacity indices are essentially unchanged. Impression: Spirometry, lung volumes, and lung diffusion capacity all within the normal range.
== END 2023-05-04 14:50 | disposition home or self-care (01) ==
LOC: ANHPFT 14:50
PROVIDERS: PCP Family Medicine; Visit Provider Internal Medicine Pulmonary Disease
DX: J84.9 Interstitial pulmonary disease, unspecified (principal)
CPT/HCPCS: 94060; 94726; 94729

== ENCOUNTER 2023-10-17 08:07 | Outpatient (CLI) | payer MEDICARE, SELFPAY | END 2023-10-17 08:08 | disposition home or self-care (01) | LOC: ANHPFT 08:08 | PROVIDERS: PCP Family Medicine; Visit Provider Internal Medicine Pulmonary Disease | DX: J84.9 Interstitial pulmonary disease, unspecified (principal) | CPT/HCPCS: 94060; 94726; 94729 ==

== ENCOUNTER 2023-10-17 08:09 | Outpatient (CLI) | payer MEDICARE, SELFPAY ==
--- NOTE | ~2023-10-17 | CT_ITS ---
EXAMINATION:CT chest high resolution [facility] DATE: 10/17/2023 09:51 INDICATION: Interstitial pulmonary disease, unspecified. TECHNIQUE: Computed tomography (CT) of the chest was performed without intravenous contrast. Automate d exposure control and iterative reconstruction technique were employed. The dose-length product (DLP ) was 259.19 mGy-cm. COMPARISON: None currently available. FINDINGS: There is mild scarring at the lung apices. Calcified bilateral lung nodules are consistent with old granulomatous disease. There is septal thickening in the lungs with a peripheral and lower l manuel predominance. No bronchiectasis or honeycombing. There are a few nodules in the lungs measuring u p to 5 mm, likely benign. No pleural effusion. The heart size is normal. There are coronary artery ca lcifications. No pericardial effusion. There is a small sliding hiatal hernia. There is mild thoracic spondylosis. IMPRESSION: 1. Mild chronic interstitial lung disease in a pattern of usual interstitial pneumonia (UIP). 2. Small sliding hiatal hernia. Reviewed, dictated and finalized at location A. IMPRESSION: 1. Mild chronic interstitial lung disease in a pattern of usual interstitial pn eumonia (UIP). 2. Small sliding hiatal hernia.
== END 2023-10-17 08:10 | disposition home or self-care (01) ==
LOC: ANHIMG 08:11
PROVIDERS: PCP Family Medicine; Visit Provider Internal Medicine Pulmonary Disease
DX: J84.9 Interstitial pulmonary disease, unspecified (principal); K44.9 Diaphragmatic hernia without obstruction or gangrene
CPT/HCPCS: 71250; 94060; 94726; 94729

== ENCOUNTER 2024-04-17 08:11 | Outpatient (CLI) | payer MEDICARE, SELFPAY ==
--- NOTE | 2024-04-17 13:38 | WPDPFTINT ---
PFT Procedure Performed PFT Procedure Performed Spirometry with Pre/Post Bronchodilator Plethysmography (Lung Vol) Diffusing Cap (DLCO) Flow Vol Loop PFT Interpretation Lung volumes were measured with the body plethysmography method. Lung volumes are unremarkable. Spirometry showed normal expiratory flow rates and a normal FEV1 to FVC ratio 79%. Following administration of a bronchodilator there was no significant increase in expiratory flow rates. Lung diffusion capacity is within the normal age at 80% predicted. The flow volume loop is unremarkable. In comparison to previous study in October of 2023 there has been no significant change in total lung capacity, lung diffusion capacity, or in FVC. Impression: Spirometry, lung volumes, and lung diffusion capacity all within the normal range.
--- NOTE | 2024-04-17 13:41 | WPDSIXMINUTE ---
Six Minute Walk Procedure Procedure Performed Pulmonary Stress Test (6 min walk) Six Minute Walk Six Minute Walk: This 6 minute walk test was carried out with the patient breathing ambient air. The pre-walk baseline oxyhemoglobin saturation was 99%. The patient walked 335 m with no stops during testing. During the walk the oxyhemoglobin saturation remained near the 100% range. Impression: No evidence of oxyhemoglobin desaturation on this testing.
== END 2024-04-17 08:12 | disposition home or self-care (01) ==
LOC: ANHPFT 08:12
PROVIDERS: PCP Family Medicine; Visit Provider Internal Medicine Pulmonary Disease
DX: J84.9 Interstitial pulmonary disease, unspecified (principal)
CPT/HCPCS: 94060; 94618; 94726; 94729

== ENCOUNTER 2025-04-17 10:05 | Outpatient (CLI) | payer MEDICARE, SELFPAY ==
--- NOTE | 2025-04-17 12:28 | WPDSIXMINUTE ---
Six Minute Walk Procedure Procedure Performed Pulmonary Stress Test (6 min walk) Six Minute Walk Six Minute Walk: This is a 6 minute walk test. The test was performed and interpreted in accordance with the 2014 ERS/ATS task force guidelines. Findings: The patient's resting room air oxygen saturation measured by pulse oximetry was 98%, the heart rate was 71 bpm, and the modified Rosalind dyspnea score was 0. Patient ambulated for 244 meters and oxygen saturation remained 99%. At the end of the study the heart rate was 83 bpm and the modified Rosalind dyspnea score was 0.5. The patient did not qualify for supplemental oxygen at rest or with ambulation. There are no prior studies for comparison.
--- NOTE | 2025-04-17 12:30 | WPDPFTINT ---
PFT Procedure Performed PFT Procedure Performed Spirometry with Pre/Post Bronchodilator Plethysmography (Lung Vol) Diffusing Cap (DLCO) Flow Vol Loop PFT Interpretation This is a pulmonary function test with pre and post-bronchodilator spirometry, plethysmography and diffusing capacity. The test was performed and results interpreted in accordance with the 2019 and 2005 ATS/ERS Task Force guidelines respectively using the Global Lung Function Initiative-2012 reference equations. Patient demonstrated good effort and cooperation. Reproducibility criteria were met. The quality of the pre bronchodilator spirometry maneuver was Grade B and post bronchodilator spirometry maneuver was Grade A. Findings: Spirometry: The contour the inspiratory and expiratory flow tracing are normal. The pre bronchodilator FVC is 3.66 L, 91% predicted. The pre bronchodilator FEV1 is 2.82 L, 93% predicted. The pre bronchodilator FEV1: FVC ratio is 77%. The post bronchodilator FVC is 3.54 L, representing a 3% decrease. The post bronchodilator FEV1 is 2.76 L, representing a 2% decrease. The post bronchodilator FEV1: FVC ratio 78%. Plethysmography: The total lung capacity is 6.01 L, 88% predicted. The functional residual capacity is 3.40 L, 94% predicted. The residual volume is 2.32 L, 96% predicted. Diffusing capacity: The diffusing capacity unadjusted for hemoglobin and carboxyhemoglobin is 21.4, 85% predicted. The diffusing capacity adjusted for alveolar volume is 4.28, 109% predicted. In comparison to previous pulmonary function testing on 04/17/2024 the post bronchodilator FVC is unchanged from 3.47 L to 3.54 L. The post bronchodilator FEV1 is unchanged from 2.93 L to 2.76 L. The total lung capacity is unchanged from 5.86 L to 6.01 L. The functional residual capacity is unchanged from 3.36 L to 3.40 L. The residual volume is unchanged from 2.03 L to 2.32 L. the diffusing capacity unadjusted for hemoglobin and carboxyhemoglobin is unchanged from 20.5 to 21.4. The diffusing capacity adjusted for alveolar volume is unchanged from 4.55 to 4.28. Impression: The spirometry is normal without evidence of an obstructive abnormality. There is no significant improvement after inhaling a single dose of albuterol. The lung volumes are normal. The diffusing capacity is normal. In comparison to previous pulmonary function testing on 04/17/2024, there is no change in the FVC, FEV1, total lung capacity, functional residual capacity, residual volume, or diffusing capacity. Clinical correlation is recommended.
== END 2025-04-17 10:06 | disposition home or self-care (01) ==
PROVIDERS: PCP Family Medicine; Visit Provider Internal Medicine Pulmonary Disease
DX: J84.9 Interstitial pulmonary disease, unspecified (principal)
CPT/HCPCS: 94060; 94618; 94726; 94729

== ENCOUNTER 2025-04-23 10:52 | Outpatient (CLI) | payer MEDICARE, SELFPAY ==
--- NOTE | ~2025-04-23 | CT_ITS ---
EXAMINATION:CT chest high resolution [place] DATE: 04/23/2025 11:13 INDICATION: Interstitial pulmonary disease, unspecified. TECHNIQUE: Computed tomography (CT) of the chest was performed without intravenous contrast. Automated exposure control and iterative reconstruction technique were employed. The dose-length product (DLP) was 286.04 mGy-cm. COMPARISON: Chest CT 10/17/2023 FINDINGS: There is widespread septal thickening in the lungs with a peripheral and lower lung predominance. No bronchiectasis or honeycombing. Again seen are a few scattered pulmonary nodules in the lungs measuring up to 6 mm, likely benign. Calcified pulmonary nodules are consistent with old granulomatous disease. No pleural effusion. The heart size is normal. There are coronary artery calcifications. No pericardial effusion. There is mild thoracic spondylosis. IMPRESSION: 1. Stable mild chronic interstitial lung disease in a pattern of usual interstitial pneumonia (UIP). Reviewed, dictated and finalized at location E. IMPRESSION: 1. Stable mild chronic interstitial lung disease in a pattern of usual intersti tial pneumonia (UIP).
== END 2025-04-23 10:53 | disposition home or self-care (01) ==
LOC: MICIMG 10:53
PROVIDERS: PCP Family Medicine; Visit Provider Nurse Practitioner Family
DX: J84.9 Interstitial pulmonary disease, unspecified (principal)
CPT/HCPCS: 71250